=== PATIENT | male | born 1955 | race Caucasian/White ===

== ENCOUNTER 2017-02-02 11:20 | Emergency (ER) | payer OTHER ==
[2017-02-02] MEDS ORDERED: ONDANSETRON 4 MG TAB.RAPDIS PO ONE (11:42)
[2017-02-02] MEDS ORDERED: MORPHINE SULFATE 10 MG/ML INJ IM ONE (11:42)
--- NOTE | 2017-02-02 11:45 | ER Document Report ---
ED Extremity Problem, Upper - General Chief Complaint: Shoulder Injury Stated Complaint: FALL/RIGHT SHOULDER PAIN Time Seen by Provider: 02/02/17 11:33 Notes: Patient slipped and fell in the bathtub this morning. He landed on his right shoulder where he is experiencing severe pain currently. Denies any other injury. Specifically, patient denies any injury to his head, neck, chest and ribs, or abdomen. Is able to stand and ambulate, but painful in the right shoulder area to do so. Hurts to take a deep breath but does not feel really short of breath. TRAVEL OUTSIDE OF THE [place] IN LAST 30 DAYS: No - Related Data Allergies/Adverse Reactions: No Known Allergies Allergy (Verified 02/02/17 11:26) Past Medical History - Social History Smoking Status: Never Smoker Chew tobacco use (# tins/day): No Frequency of alcohol use: None Drug Abuse: None Family History: Reviewed & Not Pertinent Patient has suicidal ideation: No Patient has homicidal ideation: No - Past Medical History Cardiac Medical History: Reports: Hx Hypertension Endocrine Medical History: Reports: Hx Diabetes Mellitus Type 2 Past Surgical History: Reports: Hx Orthopedic Surgery - Back surgery - Immunizations Hx Diphtheria, Pertussis, Tetanus Vaccination: No Hx Pneumococcal Vaccination: 12/16/12 Review of Systems - Review of Systems Notes: REVIEW OF SYSTEMS: CONSTITUTIONAL : Denies fever. EENT: Denies eye, ear, nose or mouth or throat pain or other symptoms. CARDIOVASCULAR: Denies chest pain. RESPIRATORY: Denies cough, chest congestion, or shortness of breath. GASTROINTESTINAL: Denies abdominal pain or nausea, vomiting, or diarrhea. GENITOURINARY: Denies difficulty or painful urinating, urinary frequency, blood in urine. MUSCULOSKELETAL: Denies back or neck pain. See HPI.. SKIN: Denies rash or skin lesions. NEUROLOGICAL: Denies LOC or altered mental status. Denies headache. Denies sensory loss or motor deficits. ALL OTHER SYSTEMS REVIEWED AND NEGATIVE. Physical Exam - Vital signs Vitals: Temp Pulse Resp BP Pulse Ox 98.4 F 75 18 131/74 H 98 02/02/17 11:26 02/02/17 11:26 02/02/17 11:26 02/02/17 11:26 02/02/17 11:26 Interpretation: Normal - Notes Notes: PHYSICAL EXAMINATION: GENERAL: Well-appearing, in no acute distress. Holding right arm very still. Painful to move right arm. HEAD: Atraumatic, normocephalic. NECK: Normal range of motion, supple. LUNGS: Breath sounds clear and equal bilaterally. No rib tenderness. HEART: Regular rate and rhythm without murmurs. ABDOMEN: Soft, nontender. No guarding or rebound. BACK: No tenderness throughout entire back. EXTREMITIES: Patient has swelling in the region of the mid and distal right clavicle. Extremely tender to touch that area or to move it. The humeral head is in proper location in the glenoid fossa. Good pulses in the right wrist and right hand. Intact neurologically in that right upper extremity, as well. NEUROLOGICAL: Normal speech, normal gait. Normal sensory, motor, and reflex exams. Awake, alert, and oriented x3. Cranial nerves normal. PSYCH: Normal mood, normal affect. SKIN: Warm, dry, no rashes. Course - Vital Signs Vital signs: Temp Pulse Resp BP Pulse Ox 98.0 F 85 22 H 135/78 H 99 02/02/17 13:36 02/02/17 13:36 02/02/17 13:36 02/02/17 13:36 02/02/17 13:36 Procedures - Immobilization Right Shoulder Pre-Proc Neuro Vasc Exam: Normal Immobilizer type: Shoulder immobilizer Performed by: PCT Post-Proc Neuro Vasc Exam: Normal Alignment checked and good: Yes Discharge - Discharge Clinical Impression: Fracture of right clavicle Condition: Stable Disposition: HOME, SELF-CARE Additional Instructions: Fractured Clavicle You have a broken collarbone (clavicle). This usually heals in three to six weeks, depending on the age of the patient and the severity of the fracture. Even badly crooked collarbone fractures are usually not "set" or operated on, just protected until healing is complete. Usual initial treatment is rest and ice packs. A clavicle strap is placed for most collarbone fractures, but some do better with only a sling. The physician will match the treatment to your fracture. If a clavicle strap was fitted, keep it in place. It may be removed for bathing or for washing the strap after the first week. You may adjust the tightness of the strap with the Velcro strips. It should not be so tight that the hands swell or go numb. No heavy lifting, work requiring the arms to be above the head, or school P.E. until healing is complete! Call the doctor or return at once if pain or swelling become severe, or if numbness develops in either arm. SPLINT PRECAUTIONS: A splint has been placed. This will protect the area while healing begins. Your problem does NOT normally require a cast. It MUST, however, be held still! Keep the splint on ALL THE TIME until instructed to remove it by the doctor. As you begin to use the area, be careful. You shouldn't do anything which causes discomfort -- you may disturb the injury even with the splint in place. After the initial period of rest and elevation, if splint does not prevent pain when you move, come back. You may require placement of a different splint , or a cast. If there is unexpected severe pain, or numbness, discoloration, or swelling beyond the splint, you should return at once. If you feel that the splint has broken or become loose, come back. ICE & ELEVATION: Apply ice packs frequently against the painful area. Many different schedules are recommended, such as "20 minutes on, 20 minutes off" or "one hour ice, two hours rest." If you need to work, you may need to go longer between ice treatments. You should plan to have the area ice packed AT LEAST one- fourth of the time. The ice should be applied over the wrap, tape, or splint, or over a layer of cloth -- not directly against the skin. Some ice bags have a built-in cloth and can be put directly on the skin. Your injured part should be elevated as much as possible over the next 48 hours. Try to keep the injury above the level of the heart. Avoid use of the injured area. Elevation and rest will decrease the swelling. USE OF CCKO-CHK-ZHRVQLU IBUPROFEN: Ibuprofen (Advil, Nuprin, Medipren, Motrin IB) is a medication for fever and pain control. In addition, it has anti- inflammatory effects which may be beneficial, especially in the treatment of injuries. It's best to take ibuprofen with food. Persons with ulcer disease or allergy to aspirin should notify their physician of this before taking ibuprofen. Ibuprofen can be given every four to six hours, for a total of four doses daily. Age Pain or fever dose Antiinflammatory dose 6-8 yr 200 mg (1 tab) 200 mg (1 tab) 9-11 yr 200 mg (1 tab) 200-400 mg (1-2 tab) 11-14 yr 200-400 mg (1-2 tab) 400 mg (2 tab) 15-adult 400 mg (2 tab) 600 mg (3 tab) ORAL NARCOTIC MEDICATION: You have been given a prescription for pain control. This medication is a narcotic. It's best taken with food, as nausea can result if taken on an empty stomach. Don't operate machinery or drive within six hours of taking this medication. Do not combine this medicine with alcohol, or with any medication which can cause sedation (such as cold tablets or sleeping pills) unless you get permission from the physician. Narcotics tend to cause constipation. If possible, drink plenty of fluids and eat a diet high in fiber and fruits. Antinausea Medication You have been given a medication to suppress nausea and vomiting. This type of medication can be given as a shot, pill, or suppository. It will usually last for many hours. Pills and shots usually last six to eight hours, suppositories last about 12 hours. For the typical illness, only one or two doses of the medication may be necessary. Mild lightheadedness may occur. This type of medicine can cause drowsiness. Do not drive or operate dangerous machinery while under its influence. Do not mix with alcohol. See your doctor at once if you have muscle spasms or tightness, or uncontrollable motions (particularly of the neck, mouth, or jaw). Persistent vomiting or severe lightheadedness should also be evaluated by the physician. FOLLOW-UP CARE: If you have been referred to a physician for follow-up care, call the physician s office for an appointment as you were instructed or within the next two days. If you experience worsening or a significant change in your symptoms, notify the physician immediately or return to the Emergency Department at any time for re-evaluation. I recommend you call Dr. tong's office Saturday and schedule an appointment for him to see you in follow-up in a week or 10 days. Prescriptions: Oxycodone HCl/Acetaminophen [Percocet 5-325 mg Tablet] 1 - 2 tab PO Q4HP PRN # 30 tablet PRN Reason: Promethazine HCl [Phenergan 25 mg Tablet] 1 - 2 tab PO Q6HP PRN #20 tablet PRN Reason: Forms: Return to Work Referrals: EDGARD JONES DO [ACTIVE STAFF] - Follow up in 1 week
--- NOTE | 2017-02-02 12:25 | RADIOLOGY REPORT (SQ) ---
EXAM DESCRIPTION: SHOULDER RIGHT 2 OR MORE VIEWS COMPLETED DATE/TIME: 02/02/2017 11:55 am REASON FOR STUDY: fall COMPARISON: None. NUMBER OF VIEWS: Three views. TECHNIQUE: Internal rotation, external rotation, and Y view images acquired of the right shoulder. LIMITATIONS: None. FINDINGS: MINERALIZATION: Normal. BONES: An oblique fracture of the distal clavicle is identified. No other evidence for acute fractur e is seen. An old healed fracture is identified involving the right 3rd rib posteriorly. JOINTS: No dislocation. VISUALIZED LUNGS AND RIBS: No pneumothorax. No rib fracture. SOFT TISSUES: No radiopaque foreign body. OTHER: No other significant finding. IMPRESSION: Oblique fracture of the distal right clavicle. No other evidence for acute fracture is seen TECHNICAL DOCUMENTATION: JOB ID: [id number] [employer]- All Rights Reserved
[2017-02-02 13:39] VITALS: BP 135/78
== END 2017-02-02 13:35 | disposition home or self-care (01) ==
LOC: ER 11:20
DX: S42.001A Fracture of unspecified part of right clavicle, initial encounter for closed fracture (principal); W18.2XXA Fall in (into) shower or empty bathtub, initial encounter
CPT/HCPCS: 99283; 96372; 73030; L3650; S0119; J2270

== ENCOUNTER 2017-03-14 23:37 | Emergency (ER) | payer OTHER ==
[2017-03-15] MEDS ORDERED: ONDANSETRON 4 MG TAB.RAPDIS PO ONE (00:49)
--- NOTE | 2017-03-15 00:49 | ER Document Report ---
ED GI/ - General Chief Complaint: Abdominal Pain Stated Complaint: ABDOMINAL PAIN Time Seen by Provider: 03/15/17 00:40 Notes: Patient is a 61-year-old male presents emergency department complaining of epigastric discomfort and one episode of emesis earlier this evening. Admits to nausea and queasiness but no actual pain. Patient denies any abnormal foods. Patient states that his was sick with something similar couple days ago. Last bowel movement was prior to arrival. Denies any focal abdominal pain or tenderness. Past medical history significant for diabetes and thrombocytopenia follows with hematology TRAVEL OUTSIDE OF THE [place] IN LAST 30 DAYS: No - Related Data Allergies/Adverse Reactions: No Known Allergies Allergy (Verified 03/14/17 23:38) Past Medical History - Social History Smoking Status: Never Smoker Family History: Reviewed & Not Pertinent Patient has suicidal ideation: No Patient has homicidal ideation: No - Past Medical History Cardiac Medical History: Reports: Hx Hypertension Endocrine Medical History: Reports: Hx Diabetes Mellitus Type 2 Renal/ Medical History: Denies: Hx Peritoneal Dialysis Past Surgical History: Reports: Hx Orthopedic Surgery - Back surgery - Immunizations Hx Diphtheria, Pertussis, Tetanus Vaccination: No Hx Pneumococcal Vaccination: 12/16/12 Review of Systems - Review of Systems Constitutional: No symptoms reported Cardiovascular: No symptoms reported Respiratory: No symptoms reported Gastrointestinal: See HPI -: Yes All other systems reviewed and negative Physical Exam - Vital signs Vitals: Temp Pulse Resp BP Pulse Ox 99.0 F 89 18 142/75 H 95 03/14/17 23:52 03/14/17 23:52 03/14/17 23:52 03/14/17 23:52 03/14/17 23:52 - Notes Notes: PHYSICAL EXAM GENERAL: Alert, interacts well. ENT: Oral mucosa moist, tongue midline. NECK: Full range of motion. Supple. Trachea midline. LUNGS: Clear to auscultation bilaterally, no wheezes, rales, or rhonchi. No respiratory distress. HEART: Regular rate and rhythm. No murmurs, gallops, or rubs. ABDOMEN: Soft, nondistended, nontender. No guarding, rebound, or rigidity.. Bowel sounds present in all 4 quadrants. EXTREMITIES: Moves all 4 extremities spontaneously. No edema, radial and dorsalis pedis pulses 2/4 bilaterally. No cyanosis. NEUROLOGICAL: Alert and oriented x4. Normal speech. PSYCH: Normal affect, normal mood. SKIN: Warm, dry, normal turgor. No rashes or lesions noted. Course - Re-evaluation Re-evalutation: 03/15/17 02:05 Patient is a 61-year-old male is hemodynamically stable, no acute distress and afebrile patient presents with epigastric abdominal pain with associated reflux symptoms most consistent with likely gastritis. Patient has no focal abdominal tenderness on examination. Negative murphys sign without presentation consistent with cholecystitis. Lipase is normal. No LFT changes. Based on history and exam, I do not suspect ACS, pulmonary embolus, SBO, mesenteric ischemia, acute pancreatitis, biliary pathology, or an abdominal aortic dissection. Patient has had improvement of symptoms here with a GI cocktail. At this time will discharge with return precautions and follow-up recommendations. Verbal discharge instructions given a the bedside and opportunity for questions given. Medication warnings reviewed. Patient is in agreement with this plan and has verbalized understanding of return precautions and the need for primary care follow-up in the next 24-72 hours. - Vital Signs Vital signs: Temp Pulse Resp BP Pulse Ox 98.4 F 94 16 134/70 H 99 03/15/17 03:08 03/15/17 03:08 03/15/17 03:08 03/15/17 03:08 03/15/17 03:08 - Laboratory Result Diagrams: 03/15/17 01:15 03/15/17 01:15 Laboratory results interpreted by me: 03/15/17 03/15/17 03/15/17 01:15 01:15 01:15 RDW 14.1 H Plt Count 97 L Seg Neutrophils % 86.8 H Lymphocytes % 10.2 L Monocytes % 2.4 L Absolute Neutrophils 8.5 H Sodium 146.8 H Glucose 217 H Total Bilirubin 1.4 H Direct Bilirubin 0.5 H Urine Glucose (UA) >=500 H Urine Ketones 80 H Urine Urobilinogen 4.0 H Discharge - Discharge Clinical Impression: Abdominal pain Qualifiers: Abdominal location: epigastric Qualified Code(s): R10.13 - Epigastric pain Condition: Good Disposition: HOME, SELF-CARE Additional Instructions: ABDOMINAL PAIN: There are many causes of abdominal pain. Pain can mean a serious problem requiring surgery (such as appendicitis). It can also be an innocent problem that goes away on its own (such as a viral infection). Often, time must pass to determine the cause of pain. The physician does not feel that hospitalization is necessary, at present. Things may change within the next 24 hours. Call the doctor or come back for re- examination if any problems occur, such as: (1) Pain that becomes more severe, steady, or becomes concentrated in one specific area. Also, pain that is more severe with movement or coughing. (2) Vomiting that persists or becomes more frequent. (3) Blood in the vomitus, urine, or bowel movements. Blood in the stool may have a tarry or black appearance. (4) Shaking chills or fever greater than 100 degrees F. (5) The abdomen becomes more distended or swollen. (6) Bowel movements cease. (7) Failure to improve as expected. NORMAL EXAM AND WORKUP: At this time, your examination and workup show no significant abnormality. No significant abnormal physical findings are noted. All laboratory, EKG, and imaging (x-ray, CT scans, ultrasound) studies that were ordered show no significant abnormality. Although your examination and all studies that were ordered showed no significant abnormal finding, there are no examinations and no studies that are 100% accurate. There is always the possibility that some abnormality could exist and not be detected with physical examination or within the limits and capabilities of laboratory and other studies. You should return or follow up as you were instructed on your visit today for further evaluation if your symptoms do not resolve. ANTINAUSEA MEDICATION: You have been given a medication to suppress nausea and vomiting. This type of medication can be given as a shot, pill, or suppository. It will usually last for many hours. Pills and shots usually last six to eight hours, suppositories last about 12 hours. For the typical illness, only one or two doses of the medication may be necessary. Mild lightheadedness may occur. This type of medicine can cause drowsiness. Do not drive or operate dangerous machinery while under its influence. Do not mix with alcohol. See your doctor at once if you have muscle spasms or tightness, or uncontrollable motions (particularly of the neck, mouth, or jaw). Persistent vomiting or severe lightheadedness should also be evaluated by the physician. FOLLOW-UP CARE: If you have been referred to a physician for follow-up care, call the physician s office for an appointment as you were instructed or within the next two days. If you experience worsening or a significant change in your symptoms, notify the physician immediately or return to the Emergency Department at any time for re-evaluation. Prescriptions: Ondansetron [Zofran Odt 4 mg Tablet] 1 - 2 tab PO Q4H PRN #15 tab.rapdis PRN Reason: For Nausea/Vomiting Referrals: NIKO ESCALANTE PA-C [Primary Care Provider] - Follow up as needed
[2017-03-15 01:34] LABS: ABSOLUTE MONOCYTES (AUTO) 0.2 10^3/uL (0.1-1.4); ABSOLUTE NEUT (AUTO) 8.5 10^3/uL (1.7-8.2); BASOPHILS % (AUTO) 0.3 % (0-2); EOSINOPHILS % (AUTO) 0.3 % (0-6); LYMPHOCYTES % (AUTO) 10.2 % (13-45); MEAN CORPUSCULAR VOLUME 94 fl (80-97); MONOCYTES % (AUTO) 2.4 % (3-13); RED BLOOD COUNT 4.55 10^6/uL (4.35-5.55); RED CELL DISTRIBUTION WIDTH 14.1 % (11.5-14.0); SEGMENTED NEUTROPHILS % (AUTO) 86.8 % (42-78); TOTAL CELLS COUNTED % (AUTO) 100 %; WHITE BLOOD COUNT 9.7 10^3/uL (4.0-10.5)
[2017-03-15 01:39] LABS: PLATELET COUNT 97 10^3/uL (150-450)
[2017-03-15 01:42] LABS: ALANINE AMINOTRANSFERASE 26 U/L (21-72); ALBUMIN 4.4 g/dL (3.5-5.0); ALKALINE PHOSPHATASE 119 U/L (38-126); ANION GAP 16 (5-19); ASPARTATE AMINO TRANSFERASE 29 U/L (17-59); BILIRUBIN,DIRECT 0.5 mg/dL (0.0-0.4); BILIRUBIN,TOTAL 1.4 mg/dL (0.2-1.3); BLOOD UREA NITROGEN 12 mg/dL (7-20); CALCIUM 9.6 mg/dL (8.4-10.2); CARBON DIOXIDE 24 mmol/L (22-30); CHLORIDE 107 mmol/L (98-107); GLUCOSE 217 mg/dL (75-110); LIPASE 90.1 U/L (23-300); POTASSIUM 4.3 mmol/L (3.6-5.0); SODIUM 146.8 mmol/L (137-145); TOTAL PROTEIN 7.6 g/dL (6.3-8.2)
[2017-03-15 01:47] LABS: APPEARANCE,URINE CLEAR; BILIRUBIN,URINE NEGATIVE (NEGATIVE); COLOR,URINE YELLOW; GLUCOSE, URINE >=500 mg/dL (NEGATIVE); KETONES,URINE 80 mg/dL (NEGATIVE); LEUKOCYTE ESTERASE,URINE NEGATIVE (NEGATIVE); NITRITE,URINE NEGATIVE (NEGATIVE); PROTEIN,URINE NEGATIVE (NEGATIVE); URINE SPECIFIC GRAVITY 1.022
[2017-03-15] MEDS ORDERED: NORMAL SALINE 1000 ML 1,000 ML IV ONE (01:54)
[2017-03-15 01:55] LABS: A TYPE INFLUENZA AG NEGATIVE (NEGATIVE); B INFLUENZA AG NEGATIVE (NEGATIVE)
[2017-03-15] MEDS ORDERED: METOCLOPRAMIDE HCL ORAL SOLN 10 MG/10 ML UDCUP PO ONE (02:04)
[2017-03-15] MEDS ORDERED: MAG HYDROX/AL HYDROX/SIMETH SUSP 30 ML UDCUP PO ONE (02:04)
[2017-03-15] MEDS ORDERED: LIDOCAINE 2% VISCOUS SOLN 20 ML UDCUP PO ONE (02:04)
[2017-03-15 03:10] VITALS: BP 134/70
== END 2017-03-15 03:10 | disposition home or self-care (01) ==
LOC: ER 23:37
DX: R10.13 Epigastric pain (principal); E11.9 Type 2 diabetes mellitus without complications; I10 Essential (primary) hypertension; D69.6 Thrombocytopenia, unspecified
CPT/HCPCS: 99284; 96360; 36415; 83690; 85025; 80053; 81001; 87804; S0119; J3490; J7030

== ENCOUNTER 2018-04-21 07:27 | Day surgery (SDC) | payer OTHER ==
[~2018-04-21 07:27] MED LIST: PROPOFOL INJ 200 MG/20 ML VIAL IV ONE
[2018-04-21 09:58] VITALS: BP 113/83
--- NOTE | 2018-04-21 13:12 | Operative Report ---
Operative Report DATE OF SURGERY: 04/21/18 Operative Report: The risks, benefits and alternatives of the procedure including the risk of bleeding, perforation requiring surgery have been explained to the patient in detail and informed consent has been obtained. The patient is taken back to the endoscopy suite and placed in the left, lateral decubital position. Timeout was called. Propofol medication is administered. A rectal examination is done which did not reveal any masses, tears or fissures. An Olympus videoscope was introduced into the patient's rectum. The scope was then carefully advanced all the way to the cecum. The cecum was identified by the usual anatomical landmarks of the ileocecal valve as well as the appendiceal office. Photodocumentation is obtained. The scope was then sequentially pulled back via the various segments of the colon including the ascending colon, hepatic flexure, transverse colon, splenic flexure, descending colon and finally into the rectosigmoid portions of the colon. Retroflexion maneuver was performed. PREOPERATIVE DIAGNOSIS: Personal history of polyp POSTOPERATIVE DIAGNOSIS: Cecal polyp was removed via snare polypectomy. Transverse colon polyp was removed via snare polypectomy. Internal hemorrhoids OPERATION: Colonoscopy with snare polypectomy SURGEON: NINA BRAVO ANESTHESIA: LMAC TISSUE REMOVED OR ALTERED: As noted above., No tissue specimen was available since attempted snare polypectomy ablated the lesion COMPLICATIONS: None. ESTIMATED BLOOD LOSS: None. INTRAOPERATIVE FINDINGS: As noted above. PROCEDURE: Patient tolerated the procedure well. No immediate postprocedure complications are noted. Patient discharged in good condition. Discharge date 04/21/2018. Discharge diet: Regular. Discharge activity: Regular. 2-3-week follow-up to discuss findings. Patient is instructed to call the office or proceed to the emergency room should there be any further problems or questions. I will wait on the pathology. 3-5-year surveillance colonoscopy.
== END 2018-04-21 09:50 | disposition home or self-care (01) ==
LOC: END 07:27
PROVIDERS: ATTEND Internal Medicine Gastroenterology
DX: Z12.11 Encounter for screening for malignant neoplasm of colon (principal); D12.0 Benign neoplasm of cecum; D12.3 Benign neoplasm of transverse colon; K64.8 Other hemorrhoids; Z86.010 Personal history of colon polyps; E11.9 Type 2 diabetes mellitus without complications; Z79.899 Other long term (current) drug therapy; Z79.84 Long term (current) use of oral hypoglycemic drugs
CPT/HCPCS: 45385; 82962; J2704; 811

== ENCOUNTER 2019-06-14 15:59 | Emergency (ER) | payer OTHER ==
--- NOTE | 2019-06-14 16:20 | ER Document Report ---
ED Medical Screen (RME) - General Chief Complaint: Altered Mental Status Stated Complaint: POSSIBLE ALTERED MENTAL STATUS Time Seen by Provider: 06/14/19 16:06 Primary Care Provider: NIKO SANTOS PA-C [Primary Care Provider] - Follow up as needed TRAVEL OUTSIDE OF THE [place] IN LAST 30 DAYS: No - HPI Notes: 06/14/19 16:17 63-year-old male with a history of type 2 diabetes presents to the emergency room with his for altered mental status. states that last Saturday he woke up and wanted to go outside and the dog started barking, his states that he started barking back at them and was not really comprehending anything. They saw his primary care provider, Niko santos who recently switched him from [employer] to [place] because she thought that could be related to his odd behavior. His states today that she was at work but got a phone call from the neighbor saying that he was wandering around trying to get into his vehicle but could not get in and was carrying a knife to try to get back into the door because he could not find his keys and was confused. No prior history of CVA or [place]. Patient was lucid throughout the week and was acting normal per . Denies any fevers chills, nausea vomiting diarrhea, chest pain shortness of breath, headache. Patient is not on a blood thinner. I have greeted and performed a rapid initial assessment of this patient. A comprehensive ED assessment and evaluation of the patient, analysis of test results and completion of the medical decision making process will be conducted by additional ED providers. PHYSICAL EXAMINATION: GENERAL: Well-appearing, well-nourished and in no acute distress. HEAD: Atraumatic, normocephalic. EYES: Pupils equal round extraocular movements intact, conjunctiva are normal. NECK: Normal range of motion CV: s1, s2 regular LUNGS: No respiratory distress Musculoskeletal: Normal range of motion NEUROLOGICAL: Normal speech, normal gait. Orientated to person and place, not orientated to time- said it was 2021 and it was March. SKIN: Warm, Dry, normal turgor, no rashes or lesions noted. - Related Data Allergies/Adverse Reactions: No Known Allergies Allergy (Verified 06/14/19 16:05) Past Medical History - Social History Frequency of alcohol use: None Drug Abuse: None - Past Medical History Cardiac Medical History: Denies: Hx Coronary Artery Disease, Hx Heart Attack, Hx Hypertension Pulmonary Medical History: Denies: Hx Asthma, Hx Bronchitis, Hx COPD, Hx Pneumonia Neurological Medical History: Denies: Hx Cerebrovascular Accident, Hx Seizures Endocrine Medical History: Reports: Hx Diabetes Mellitus Type 2 Renal/ Medical History: Denies: Hx Peritoneal Dialysis Musculoskeltal Medical History: Denies Hx Arthritis - PSORIATIC Past Surgical History: Reports: Hx Orthopedic Surgery - Back surgery - Immunizations Hx Diphtheria, Pertussis, Tetanus Vaccination: No Physical Exam - Vital signs Vitals: Temp Pulse Resp BP Pulse Ox 98.6 F 95 16 126/61 H 93 06/14/19 16:02 06/14/19 16:02 06/14/19 16:02 06/14/19 16:02 06/14/19 16:02 Course - Vital Signs Vital signs: Temp Pulse Resp BP Pulse Ox 98.6 F 95 16 126/61 H 93 06/14/19 16:02 06/14/19 16:02 06/14/19 16:02 06/14/19 16:02 06/14/19 16:02 Doctor's Discharge - Discharge Referrals: NIKO SANTOS PA-C [Primary Care Provider] - Follow up as needed
--- NOTE | 2019-06-14 16:41 | RADIOLOGY REPORT (SQ) ---
EXAM DESCRIPTION: CT HEAD WITHOUT IMAGES COMPLETED DATE/TIME: 06/14/2019 4:27 pm REASON FOR STUDY: AMS COMPARISON: None. TECHNIQUE: Axial images acquired through the brain without intravenous contrast. Images reviewed wi th bone, brain and subdural windows. Additional sagittal and coronal reconstructions were generated. Images stored on PACS. All CT scanners at this facility use dose modulation, iterative reconstruction, and/or weight based d osing when appropriate to reduce radiation dose to as low as reasonably achievable (ALARA). [facility]: Dose Right [facility]: CareDose [facility]: Dose Right [facility]: Teradose 4D [facility]: [employer] AB RADIATION DOSE: CT Rad equipment meets quality standard of care and radiation dose reduction techniq ues were employed. CTDIvol: 53.2 mGy. DLP: 2194 mGy-cm. mGy. LIMITATIONS: None. FINDINGS: VENTRICLES: Normal size and contour. CEREBRUM: No masses. No hemorrhage. No midline shift. No evidence for acute infarction. Minimal bi frontal and biparietal low attenuation the hemispheric white matter. CEREBELLUM: No masses. No hemorrhage. No alteration of density. No evidence for acute infarction. EXTRAAXIAL SPACES: No fluid collections. No masses. ORBITS AND GLOBE: No intra- or extraconal masses. Normal contour of globe without masses. CALVARIUM: No fracture. PARANASAL SINUSES: No fluid or mucosal thickening. SOFT TISSUES: No mass or hematoma. OTHER: No other significant finding. IMPRESSION: No acute findings EVIDENCE OF ACUTE STROKE: NO. COMMENT: Quality ID # [id number]: Final reports with documentation of one or more dose reduction techniques (e.g., Automated exposure control, adjustment of the mA and/or kV according to patient size, use of iterative reconstruction technique) TECHNICAL DOCUMENTATION: JOB ID: [id number] [employer]- All Rights Reserved Reading location - IP/workstation name: [id number]
--- NOTE | 2019-06-14 16:42 | RADIOLOGY REPORT (SQ) ---
EXAM DESCRIPTION: CHEST SINGLE VIEW IMAGES COMPLETED DATE/TIME: 06/14/2019 4:27 pm REASON FOR STUDY: ams COMPARISON: None. EXAM PARAMETERS: NUMBER OF VIEWS: One view. TECHNIQUE: Single frontal radiographic view of the chest acquired. RADIATION DOSE: NA LIMITATIONS: Large patient, portable technique FINDINGS: LUNGS AND PLEURA: No opacities, masses or pneumothorax. No pleural effusion. MEDIASTINUM AND HILAR STRUCTURES: No masses. Contour normal. HEART AND VASCULAR STRUCTURES: Heart normal in size. Normal vasculature. BONES: No acute findings. HARDWARE: None in the chest. OTHER: No other significant finding. IMPRESSION: NO ACUTE RADIOGRAPHIC FINDING IN THE CHEST. TECHNICAL DOCUMENTATION: JOB ID: [id number] 2010 [employer]- All Rights Reserved Reading location - IP/workstation name: [id number]
[2019-06-14 16:56] LABS: INTERNATIONAL RATION (INR) 1.27
[2019-06-14 17:11] LABS: ABSOLUTE EOSINOPHILS # (AUTO) 0.1 10^3/uL (0.0-0.6); ABSOLUTE LYMPHOCYTES (AUTO) 1.2 10^3/uL (0.5-4.7); ABSOLUTE MONOCYTES (AUTO) 0.3 10^3/uL (0.1-1.4); ABSOLUTE NEUT (AUTO) 2.2 10^3/uL (1.7-8.2); BASOPHILS % (AUTO) 0.7 % (0-2); EOSINOPHILS % (AUTO) 2.4 % (0-6); HEMATOCRIT 38.2 % (37.9-51.0); HEMOGLOBIN 13.5 g/dL (13.5-17.0); LYMPHOCYTES % (AUTO) 31.4 % (13-45); MEAN CORPUSCULAR HEMOGLOBIN 34.7 pg (27.0-33.4); MEAN CORPUSCULAR HGB CONC 35.4 g/dL (32.0-36.0); MEAN CORPUSCULAR VOLUME 98 fl (80-97); MONOCYTES % (AUTO) 7.8 % (3-13); RED BLOOD COUNT 3.89 10^6/uL (4.35-5.55); RED CELL DISTRIBUTION WIDTH 16.3 % (11.5-14.0); SEGMENTED NEUTROPHILS % (AUTO) 57.7 % (42-78); TOTAL CELLS COUNTED % (AUTO) 100 %; WHITE BLOOD COUNT 3.9 10^3/uL (4.0-10.5)
--- NOTE | 2019-06-14 17:35 | ER Document Report ---
ED General - General Chief Complaint: Altered Mental Status Stated Complaint: POSSIBLE ALTERED MENTAL STATUS Time Seen by Provider: 06/14/19 16:06 Primary Care Provider: NIKO ESCALANTE PA-C [Primary Care Provider] - Follow up as needed TRAVEL OUTSIDE OF THE [place] IN LAST 30 DAYS: No - HPI Notes: Patient is a 63-year-old male who comes into the emergency department with his for evaluation of altered mental status. Last Saturday, the patient woke up and fell out of bed. He was supposed to be taking the dog outside. His asked if he was going to be taking the dog out, at which point he began barking at her. He was acting confused intermittently through most of the day. They contacted their primary care provider. He had just recently started on Januvia, which evidently can cause some confusion, so this was discontinued. Patient's notes that he seemed to be better through the week. She stayed with him Saturday through , and states that he was entirely at baseline. He has become more confused again this weekend. He was wandering around the house, disheveled, nearly unrecognizable. He got into the car to drive somewhere, but then got out, forgetting where he was headed. He has been answering questions inappropriately. They deny any recent injury. No fevers or chills. No chest pain or shortness of breath. Besides the discontinuation of the Januvia, there have not been any other medication changes. states she has been trying to control his blood glucose via dietary changes. He has had no fevers or chills. No cough. No runny nose. He denies any shortness of breath. states that she believes he is not eating as much over the last several days, but states he was eating normally before that. She attributes this to "the food has no salt or sugar, so is not as good." - Related Data Allergies/Adverse Reactions: No Known Allergies Allergy (Verified 06/14/19 16:05) Home Medications: Glipizide, Neurontin, metformin, simvastatin Past Medical History - General Information source: Patient, Relative - Social History Smoking Status: Never Smoker Frequency of alcohol use: None Drug Abuse: None Family History: Reviewed & Not Pertinent Patient has suicidal ideation: No Patient has homicidal ideation: No - Past Medical History Cardiac Medical History: Reports: Hx Hypercholesterolemia Denies: Hx Coronary Artery Disease, Hx Heart Attack, Hx Hypertension Pulmonary Medical History: Denies: Hx Asthma, Hx Bronchitis, Hx COPD, Hx Pneumonia Neurological Medical History: Denies: Hx Cerebrovascular Accident, Hx Seizures Endocrine Medical History: Reports: Hx Diabetes Mellitus Type 2 Renal/ Medical History: Denies: Hx Peritoneal Dialysis Musculoskeletal Medical History: Reports Hx Arthritis - PSORIATIC Past Surgical History: Reports: Hx Orthopedic Surgery - Back surgery - Immunizations Hx Diphtheria, Pertussis, Tetanus Vaccination: No Hx Pneumococcal Vaccination: 12/16/12 Review of Systems - Review of Systems Neurological/Psychological: See HPI -: Yes All other systems reviewed and negative Physical Exam - Vital signs Vitals: Temp Pulse Resp BP Pulse Ox 98.6 F 95 16 126/61 H 93 06/14/19 16:02 06/14/19 16:02 06/14/19 16:02 06/14/19 16:02 06/14/19 16:02 - Notes Notes: This is a very pleasant 63-year-old male who appears his stated age, no acute distress. Vital signs reviewed, please refer to chart. Head is normocephalic, atraumatic. Pupils equal round, reactive to light. Neck is supple without meningismus. Heart is regular rate and rhythm. Lungs are clear to auscultation bilaterally. Abdomen is soft, nontender, normoactive bowel sounds throughout. Extremities without cyanosis, clubbing. Posterior calves are nontender. Peripheral pulses are equal. Skin is warm and dry. Patient is awake, alert, cooperative with examiner. He answers questions inconsistently, first telling me his father is alive and well, then tells me he has . He tells me that it is December 2019, had told nursing a few minutes earlier it was March 2021. Oriented to place and person. Cranial nerves II - XII are grossly int act without focal neurological deficits. Strength is plus 5 out of 5 bilateral extremities. Strength is mildly diminished in customer experience intern on the right hand at 4 out of 5, patient states this is secondary to arthritic pain. The remainder of his upper extremity exhibits 5 out of 5 strength. Sensation is intact. Reflexes symmetrical. Intact [id number], rapid alternating movements, [id number], although patient did have a difficult time understanding instructions. Course - Re-evaluation Re-evalutation: 06/14/19 17:35 Patient presents emergency department for evaluation of altered mental status. He was placed on a lunchroom monitor, blood work was obtained, and imaging ordered. His vital signs are stable. His EKG is unremarkable. Imaging fails to reveal any sign of acute stroke. Awaiting further testing, we will continue to monitor. 06/14/19 20:18 I went back and reevaluate the patient after labs were obtained. The patient does have a mild alkalosis, both respiratory and metabolic. His renal function is normal. The remainder of his electrolytes are unremarkable. His customer experience intern strength is normal when I repeat his neurological exam. At this point he has had waxing and waning of his mental status. I do not have a strong suspicion of a CVA being responsible for this, given the fact that he was back to baseline for the last 4 days. He has no infectious symptoms. His vital signs are perfect. He has no leukocytosis. I do not have a clear etiology for this patient's confusion and altered mental status. At this point, I do believe he is stable for outpatient work-up. Patient's will bring him to primary care provider tomorrow for further evaluation. They understand that if he has any worsening or new concerning symptoms they should return immediately to the ER for further evaluation. - Vital Signs Vital signs: Temp Pulse Resp BP Pulse Ox 98.6 F 87 20 122/66 98 06/14/19 16:02 06/14/19 17:25 06/14/19 19:01 06/14/19 19:01 06/14/19 19:01 - Laboratory Result Diagrams: 06/14/19 16:35 06/14/19 17:30 Laboratory results interpreted by me: 06/14/19 06/14/19 06/14/19 16:35 16:35 17:09 WBC 3.9 L RBC 3.89 L MCV 98 H MCH 34.7 H RDW 16.3 H Plt Count 66 L PT 16.0 H Carbonic Acid ABG pH ABG pCO2 ABG pO2 ABG HCO3 ABG Total CO2 ABG O2 Saturation VBG pH VBG pCO2 VBG HCO3 Chloride Carbon Dioxide Glucose Total Bilirubin Urine Protein 30 H Urine Glucose (UA) 50 H Urine Ketones 20 H Urine Urobilinogen 2.0 H 06/14/19 06/14/19 06/14/19 17:30 17:35 18:40 WBC RBC MCV MCH RDW Plt Count PT Carbonic Acid 0.71 L ABG pH 7.48 H ABG pCO2 23.7 L ABG pO2 101.5 H ABG HCO3 17.4 L ABG Total CO2 18.1 L ABG O2 Saturation 98.1 H VBG pH 7.48 H VBG pCO2 23.2 L VBG HCO3 16.9 L Chloride 112 H Carbon Dioxide 19 L Glucose 137 H Total Bilirubin 2.0 H Urine Protein Urine Glucose (UA) Urine Ketones Urine Urobilinogen - Diagnostic Test Radiology reviewed: Reports reviewed Radiology results interpreted by me: 06/14/19 17:[address] 06/14/19 16:15 IMPRESSION: No acute findings EVIDENCE OF ACUTE STROKE: NO. Chest X-Ray 06/14/19 16:16 IMPRESSION: NO ACUTE RADIOGRAPHIC FINDING IN THE CHEST. - EKG Interpretation by Me Additional EKG results interpreted by me: 06/14/19 17:35 Sinus mechanism with a rate of 88 bpm. Normal axis and intervals. No acute ST changes concerning for ischemia or infarction. Discharge - Discharge Clinical Impression: Confusion Condition: Stable Disposition: HOME, SELF-CARE Instructions: Altered Mental Status ([facility]) Additional Instructions: No clear cause has been identified for his confusion today. Besides his intermittent confusion, his neurological exam is unremarkable. Please follow-up closely with primary care provider tomorrow. Return to the emergency department with worsening or new concerning symptoms of any sort. Referrals: NIKO ESCALANTE PA-C [Primary Care Provider] - Follow up as needed
[2019-06-14 17:41] LABS: PLATELET COUNT 66 10^3/uL (150-450)
[2019-06-14 17:49] LABS: VENOUS BLOOD BASE EXCESS -4.5 mmol/L; VENOUS BLOOD HCO3 16.9 mmol/L (20-32); VENOUS BLOOD PCO2 23.2 mmHg (35-63); VENOUS BLOOD PH 7.48 (7.30-7.42)
[2019-06-14 17:53] LABS: APPEARANCE,URINE CLEAR; BILIRUBIN,URINE NEGATIVE (NEGATIVE); COLOR,URINE AMBER; GLUCOSE, URINE 50 mg/dL (NEGATIVE); KETONES,URINE 20 mg/dL (NEGATIVE); LEUKOCYTE ESTERASE,URINE NEGATIVE (NEGATIVE); NITRITE,URINE NEGATIVE (NEGATIVE); PROTEIN,URINE 30 mg/dL (NEGATIVE); URINE SPECIFIC GRAVITY 1.028
[2019-06-14 18:03] LABS: ALBUMIN 3.6 g/dL (3.5-5.0); ALKALINE PHOSPHATASE 94 U/L (38-126); ANION GAP 8 (5-19); ASPARTATE AMINO TRANSFERASE 42 U/L (17-59); BILIRUBIN,DIRECT 0.2 mg/dL (0.0-0.4); BLOOD UREA NITROGEN 15 mg/dL (7-20); CALCIUM 8.9 mg/dL (8.4-10.2); CARBON DIOXIDE 19 mmol/L (22-30); CHLORIDE 112 mmol/L (98-107); GLUCOSE 137 mg/dL (75-110); POTASSIUM 3.8 mmol/L (3.6-5.0); TOTAL PROTEIN 6.9 g/dL (6.3-8.2)
[2019-06-14 18:03] LABS: URINE AMPHETAMINES SCREEN NEGATIVE; URINE BARBITURATES SCREEN NEGATIVE; URINE BENZODIAZEPINES SCREEN NEGATIVE; URINE COCAINE SCREEN NEGATIVE; URINE MARIJUANA (THC) SCREEN NEGATIVE; URINE METHADONE SCREEN NEGATIVE; URINE PHENCYCLIDINE SCREEN NEGATIVE
--- NOTE | 2019-06-14 18:51 | EKG REPORT ---
SEVERITY:- NORMAL ECG - SINUS RHYTHM : Confirmed by: Keith Peraza MD 14-Jun-2019 18:50:14
[2019-06-14 18:56] LABS: ARTERIAL BLOOD BASE EXCESS -4.3 mmol/L; ARTERIAL BLOOD H2CO3 0.71 mmol/L (1.05-1.35); ARTERIAL BLOOD HCO3 17.4 mmol/L (20-24); ARTERIAL BLOOD O2 SATURATION 98.1 % (94-98); ARTERIAL BLOOD PCO2 23.7 mmHg (35-45); ARTERIAL BLOOD PH 7.48 (7.35-7.45); ARTERIAL BLOOD PO2 101.5 mmHg (80-100); ARTERIAL BLOOD TOTAL CO2 18.1 mmol/L (23-27)
[2019-06-14 18:57] LABS: ARTERIAL BLOOD FIO2 ROOM AIR
[2019-06-14 20:55] VITALS: BP 110/45
== END 2019-06-14 20:52 | disposition home or self-care (01) ==
LOC: ER 15:59
DX: R41.0 Disorientation, unspecified (principal); E87.3 Alkalosis; E78.00 Pure hypercholesterolemia, unspecified; E11.9 Type 2 diabetes mellitus without complications; Z79.84 Long term (current) use of oral hypoglycemic drugs; Z79.899 Other long term (current) drug therapy; Z91.81 History of falling
CPT/HCPCS: 36415; 36600; 70450; 71045; 80053; 80307; 81001; 82803; 84443; 84484; 85025; 85610; 93005; 93010; 99285